=== PATIENT | female | born 1960 | race Two or more races ===

== ENCOUNTER 2019-04-03 04:14 | Emergency (ER) | payer MEDICAID, OTHER ==
[~2019-04-03] VITALS: Ht 170.2 cm; Wt 86.2 kg
[2019-04-03 04:19] VITALS: BP 177/97
== END 2019-04-03 06:02 | disposition home or self-care (01) ==
LOC: ER 04:14 → EDBD 04:14 → ER 06:02
DX: B02.29 Other postherpetic nervous system involvement (principal); R21 Rash and other nonspecific skin eruption

== ENCOUNTER 2022-08-13 11:04 | Emergency (ER) | payer OTHER ==
[~2022-08-13] VITALS: Ht 162.6 cm; Wt 100.0 kg
[2022-08-13 13:17] LABS: Urine Bacteria FEW /hpf (None Seen); Urine Blood 3+ /uL (Negative); Urine Specific Gravity 1.006 (1.001-1.035); Urine WBC 29 /hpf (0 - 5)
[2022-08-13 13:40] LABS: Basophils # (auto) 0 10 ^3/uL (0-0.2); Basophils % (auto) 0.5 % (0.0-2.0); Eosinophils # (auto) 0 10 ^3/uL (0-0.8); Hemoglobin 13.5 g/dL (12.2-16.2); Lymphocytes # (auto) 1.8 10 ^3/uL (0.4-5.4); Lymphocytes % (auto) 26.4 % (10.0-50.0); Mean Corpuscular Volume 87.9 fL (80.0-100.0); Monocytes # (auto) 0.8 10 ^3/uL (0-1.3); Monocytes % (auto) 11.5 % (0.0-12.0); Neutrophils # (auto) 4.1 10 ^3/uL (1.6-8.6); Neutrophils % (auto) 61.6 % (37.0-80.0); Nucleated Red Blood Cells % 0.1 %; Red Blood Cells 4.67 10^6/uL (4.0-5.20); Red Cell Distribution Width 13.4 % (11.8-14.3); White Blood Cell 6.7 10^3/uL (4.4-10.8)
[2022-08-13 14:02] LABS: Albumin 2.5 g/dL (3.4-5.0); BUN/Creatinine Ratio 11.4 (10.0-20.0); Potassium 4.2 mmol/L (3.5-5.1)
[2022-08-13 14:05] LABS: Bilirubin, Total 0.4 mg/dL (0.2-1.0); Total Protein 7.5 g/dL (6.4-8.2)
[2022-08-13 14:18] VITALS: BP 151/88
[2022-08-13] MEDS ORDERED: AMLO1TAB23 PO (14:34)
[2022-08-13] MEDS ORDERED: CEPH500C PO (14:34)
[2022-08-13] MEDS ORDERED: HYDR25TA4 PO (14:35)
[2022-08-13] MEDS ORDERED: ZOFR4T PO (14:46)
== END 2022-08-13 14:42 | disposition home or self-care (01) ==
LOC: ER 11:04
DX: N39.0 Urinary tract infection, site not specified (principal); I12.9 Hypertensive chronic kidney disease with stage 1 through stage 4 chronic kidney disease, or unspecified chronic kidney disease; N18.32 Chronic kidney disease, stage 3b; Z76.0 Encounter for issue of repeat prescription
CPT/HCPCS: 36415; 80053; 81001; 85025; 87086